=== PATIENT | female | born 1995 | race Caucasian/White ===

== ENCOUNTER 2021-08-21 09:56 | Emergency (ER) | payer MEDICAID, SELFPAY ==
[2021-08-21] VITALS (16 sets, daily range): BP systolic 120–138; BP diastolic 59–79; PULSE 72–96; RESP 11–22; TEMP 37–37.1; O2SAT 95–100
--- NOTE | 2021-08-21 10:00 | RT.EKG_ITS ---
APPROVED REPORT Exam: Resting ECG Reason for Exam: feels like weight on chest Patient Location: E HR:80 bpm ECG Measurements Heart Rate 80 AXIS ND 167 P 34 QRSd 83 QRS 38 QT 377 T 28 QTc 436 Conclusion Sinus rhythm...normal P axis, V-rate 60- 99
[2021-08-21] MEDS: Albuterol/Ipratropium 3 ML UPD VIAL UPD (10:25)
[2021-08-21 10:45] LABS: Abs Immature Grans 0.02 10^3/uL (0.0-0.06); Absolute Basophil Count 0.05 10^3/uL (0.0-0.2); Absolute Eosinophil Count 0.38 10^3/uL (0.0-0.7); Absolute Lymphocyte Count 0.82 10^3/uL (1.2-3.4); Absolute Monocyte Count 0.53 10^3/uL (0.1-0.8); Absolute Neutrophil Count 5.53 10^3/uL (1.2-6.7); Basophils % 0.7; Eosinophils % 5.2; HGB 13.4 g/dL (11.2-15.7); Immature Grans % 0.3; Lymphocytes % 11.2; MCH 30.3 pg (27.0-33.0); MCHC 32.7 % (32.0-36.0); MCV 92.8 fL (80-95); Monocytes % 7.2; Neutrophils % 75.4; Nucleated RBC 0 %; Platelet Count 183 10^3/uL (130-400); RBC 4.42 10^6/uL (3.93-5.22); RDW 12.2 % (11.7-14.6); RDW-SD 42.3 fL; WBC 7.33 10^3/uL (4.4-10.8)
[2021-08-21 10:47] LABS: Bilirubin Negative (Negative); Blood Trace-lysed (Negative); Clarity Clear (Clear); Glucose Negative (Negative); Ketones Negative (Negative); Leukocyte Esterase Negative (Negative); Nitrite Negative (Negative); Specific Gravity 1.015 (1.005-1.025); Urobilinogen 0.2 EU/dL (Up TO 0.2)
[2021-08-21 11:01] LABS: ALT 18 U/L (14-59); AST 12 U/L (15-37); Albumin 3.9 g/dL (3.4-5.0); Alkaline Phosphatase 54 U/L (46-116); Anion Gap 6.7 mmol/L (3-11); BUN 10 mg/dL (7-18); Bilirubin, Total 0.6 mg/dL (0.2-1.0); CO2 29.3 mmol/L (21.0-32.0); CREATININE 0.6 mg/dL (0.55-1.02); Calcium 8.7 mg/dL (8.5-10.1); Chloride 104 mmol/L (98-107); Glucose 100 mg/dL (74-106); Potassium 3.6 mmol/L (3.5-5.1); Sodium 140 mmol/L (136-145); Total Protein 7.3 g/dL (6.4-8.2)
[2021-08-21 11:14] LABS: Troponin I < 50 ng/L (<or=60)
[2021-08-21 11:18] LABS: Bacteria Rare HPF (Negative); C & S Indicated? No; Casts Negative LPF (Negative); Crystals Negative HPF (Negative); Epithelial Cells Rare HPF (Negative); Mucus Negative (Negative); Other Cells Negative (Negative); RBC 0-2 HPF (0-2); WBC Negative HPF (0-5)
[2021-08-21 11:22] LABS: D-Dimer 282 ng/mlFEU (<500)
--- NOTE | 2021-08-21 11:54 | ED.GENADUL_ITS ---
Discharge Plan Disposition Patient Disposition: HOME Condition: Good Discharge Details Clinical Impression: Bronchitis Primary Care Provider: Maulik Cheng ED Provider: Tatyana Palumbo Home Meds and New Rx's Prescriptions: New prednisone 20 mg tablet 40 mg PO DAILY Qty: 6 RF: 0 albuterol sulfate 90 mcg/actuation HFA aerosol inhaler 2 puff inhalation Q6H PRNQty: 6.7 RF: 0 Continued multivitamin Tablet 1 tab PO DAILY RF: 0 citalopram 40 mg tablet 40 mg PO DAILY RF: 0 albuterol sulfate [ProAir HFA] 90 mcg/actuation HFA aerosol inhaler 2 puff INHALATION PRNRF: 0 Discharge Instructions Instructions: Acute Bronchitis (ED), Instructions for Self Monitoring Oxygen Saturation Additional Instructions: increased fluid hydration motrin 600 mg every 8 hours with food tylenol 650 mg every 4-6 hours if you take prednisone, do not take ibuprofen at the same time i would start the prednisone if you continue to be short of breath after using your inhaler every 4-6 hours (2 puffs with spacer), for 24 hours sudafed otc, mucinex otc return with oxygen <90% or with new or worsening complaints your covid test will likely return in 48 hours, isolate until this returns Referrals: Maulik Cheng [Primary Care Provider] - Discharge Data Discharge Date/Time-TO BE ENTERED AT DEPARTURE: 08/21/21 13:14 Medical Decision Making Chest x-ray does not show evidence of acute abnormality per radiology review and my assessment No hypoxia, no respiratory distress Symptomatic improvement although initial anxiety was DuoNeb administration Ambulatory without hypoxia Given pulse oximetry for home with instructions on how to utilize it D-dimer negative, low risk for PE Troponin negative without any family history of cardiac disease Discussed smoking cessation Supplied with albuterol inhaler for home with spacer Prednisone 40 mg daily for 3 days with persistent symptoms No indication for antibiotics Negative test Diagnostic labs reassuring Pending PCR outpatient Covid test, will continue to isolate until this returns Recheck in 24 to 48 hours Return precautions discussed and patient expressed understanding, discharged home stable vitals and symptomatic improvement We will take [id number] medications such as Sudafed for symptom control Medical Records Medical records reviewed: Yes I reviewed the patient's medical records. Lab Data Lab results reviewed: Yes I reviewed the patient's lab results. ECG Data Prior ECG tracings: available for review HPI General Mode of arrival: ambulatory . Date/Time Provider Initiated Documentation: 08/21/21 10:14 . Limitations to Documentation: no limitations . Information obtained by: patient . HPI Narrative: This 26-year-old female pres ents with shortness of breath and chest pressure for the past 4 days. Denies any fever or chills. States she had a close contact did test Covid positive although patient has had a negative rapid and PCR test for Covid. Denies any current calf pain or swelling. Denies any headache. Has myalgias reportedly. States that she did try her albuterol today without relief in symptoms. She has a history of asthma. She does smoke tobacco. States she is non-smoker for the past several days. Denies any chance of . Denies prior history of coagulopathy. Related Data Home Medications Medication Instructions Recorded Confirmed albuterol sulfate 2 puff INHALATION Q6H PRN #6.7 g 08/21/21 albuterol sulfate [ProAir HFA] 2 puff INHALATION PRN 08/21/21 citalopram 40 mg PO DAILY 08/21/21 08/21/21 multivitamin 1 tab PO DAILY 08/21/21 08/21/21 prednisone 40 mg PO DAILY #6 tab 08/21/21 Previous Rx's Medication Instructions Recorded albuterol sulfate 2 puff INHALATION Q6H PRN #6.7 g 08/21/21 prednisone 40 mg PO DAILY #6 tab 08/21/21 Allergies Allergy/AdvReac Type Severity Reaction Status Date / Time Penicillins Allergy Unverified 08/21/21 10:12 sulfamethoxazole Allergy Unverified 08/21/21 10:12 [From Bactrim] trimethoprim [From Bactrim] Allergy Unverified 08/21/21 10:12 General Stated Complaint: SOB PEPE: 3 Review of Systems All systems reviewed & are unremarkable except as noted in HPI and below PFSH All Active Problems (Updated 08/21/21 @ 12:47 by DANIS Bowman) Bronchitis (Acute) Social History Smoking/Tobacco Use Status: Current every day Tobacco Type: cigarettes and e- cigarettes Smoking risk assessment performed?: Yes Drug use: Occasionally Substance use type: marijuana Exam Const General: cooperative and comfortable Orientation: alert and oriented x3 HENMT Mouth: oral mucosae normal Eyes Pupils: PERRL Neck Other: no stridor Resp Effort & Inspection: normal respiratory effort Auscultation: clear to auscultation bilaterally and lung sounds not diminished Cardio Rate: regular rate Rhythm: regular rhythm Skin General skin exam: no rashes or lesions noted Neuro General: patient alert and patient oriented x3 Extrem Other: Distal pulses intact, no peripheral edema Course Vital Signs Vital signs: Vital Signs Temperature 37.1 C 08/21/21 10:06 Pulse 80 08/21/21 10:06 Respiratory Rate 15 08/21/21 10:06 Blood Pressure 137/73 08/21/21 10:06 Pulse Oximetry 97 08/21/21 10:06 Temperature 37.1 C 08/21/21 10:06 Temperature Source Skin 08/21/21 10:06 Pulse 83 08/21/21 11:00 Pulse 96 H 08/21/21 11:01 Respiratory Rate 13 08/21/21 11:01 Respiratory Effort 08/21/21 10:19 Respiratory Pattern Tachypnea 08/21/21 10:19 Blood Pressure 120/59 L 08/21/21 11:00 Blood Pressure Mean 72 08/21/21 11:00 Blood Pressure Position Supine 08/21/21 10:06 Pulse Oximetry 98 08/21/21 11:01 Oxygen Delivery Method Room Air 08/21/21 10:25 Oxygen Flow Rate 0 08/21/21 10:25 Pain Level 7 08/21/21 10:06 Lab/Test Results Lab/Test Results: Laboratory Tests Range/Units 08/21/21 08/21/21 08/21/21 10:13 10:13 10:13 WBC (4.4-10.8) 10^3/uL 7.33 RBC (3.93-5.22) 10^6/uL 4.42 Hgb (11.2-15.7) g/dL 13.4 Hct (36.0-46.0) % 41.0 MCV (80-95) fL 92.8 MCH (27.0-33.0) pg 30.3 MCHC (32.0-36.0) % 32.7 RDW (11.7-14.6) % 12.2 Plt Count (130-400) 10^3/uL 183 MPV (8.0-11.0) fL 10.0 Immature Gran % 0.3 Neutrophils % 75.4 Lymphocytes % 11.2 Monocytes % 7.2 Eosinophils % 5.2 Basophils % 0.7 Nucleated RBC % % 0 Absolute Neutrophils (1.2-6.7) 10^3/uL 5.53 Absolute Lymphocytes (1.2-3.4) 10^3/uL 0.82 L Absolute Monocytes (0.1-0.8) 10^3/uL 0.53 Absolute Eosinophils (0.0-0.7) 10^3/uL 0.38 Absolute Basophils (0.0-0.2) 10^3/uL 0.05 D-Dimer (<500) ng/mlFEU Sodium (136-145) mmol/L 140 Potassium (3.5-5.1) mmol/L 3.6 Chloride (98-107) mmol/L 104 Carbon Dioxide (21.0-32.0) mmol/L 29.3 Anion Gap (3-11) mmol/L 6.7 BUN (7-18) mg/dL 10 Creatinine (0.55-1.02) mg/dL 0.6 Estimated GFR/1.73 m2 (mL/min/1.73m2) >= 60.00 Glucose (74-106) mg/dL 100 Calcium (8.5-10.1) mg/dL 8.7 Total Bilirubin (0.2-1.0) mg/dL 0.6 AST (15-37) U/L 12 L ALT (14-59) U/L 18 Alkaline Phosphatase (46-116) U/L 54 Troponin I (<or=60) ng/L < 50 Total Protein (6.4-8.2) g/dL 7.3 Albumin (3.4-5.0) g/dL 3.9 Urine Color (Yellow) Urine Clarity (Clear) Urine pH (5-8) Ur Specific [place] (1.005-1.025) Urine Protein (Negative) mg/dL Urine Ketones (Negative) mg/dL Urine Blood (Negative) Urine Nitrite (Negative) Urine Bilirubin (Negative) Urine Urobilinogen (Up TO 0.2) EU/dL Ur Leukocyte Esterase (Negative) Urine RBC (0-2) HPF Urine WBC (0-5) HPF Ur Epithelial Cells (Negative) HPF Urine Crystals (Negative) HPF Urine Bacteria (Negative) HPF Urine Casts (Negative) LPF Urine Mucus (Negative) Urine Other (Negative) Ur Culture Indicated? Urine Glucose (Negative) mg/dL Range/Units 08/21/21 08/21/21 10:30 10:43 WBC (4.4-10.8) 10^3/uL RBC (3.93-5.22) 10^6/uL Hgb (11.2-15.7) g/dL Hct (36.0-46.0) % MCV (80-95) fL MCH (27.0-33.0) pg MCHC (32.0-36.0) % RDW (11.7-14.6) % Plt Count (130-400) 10^3/uL MPV (8.0-11.0) fL Immature Gran % Neutrophils % Lymphocytes % Monocytes % Eosinophils % Basophils % Nucleated RBC % % Absolute Neutrophils (1.2-6.7) 10^3/uL Absolute Lymphocytes (1.2-3.4) 10^3/uL Absolute Monocytes (0.1-0.8) 10^3/uL Absolute Eosinophils (0.0-0.7) 10^3/uL Absolute Basophils (0.0-0.2) 10^3/uL D-Dimer (<500) ng/mlFEU 282 Sodium (136-145) mmol/L Potassium (3.5-5.1) mmol/L Chloride (98-107) mmol/L Carbon Dioxide (21.0-32.0) mmol/L Anion Gap (3-11) mmol/L BUN (7-18) mg/dL Creatinine (0.55-1.02) mg/dL Estimated GFR/1.73 m2 (mL/min/1.73m2) Glucose (74-106) mg/dL Calcium (8.5-10.1) mg/dL Total Bilirubin (0.2-1.0) mg/dL AST (15-37) U/L ALT (14-59) U/L Alkaline Phosphatase (46-116) U/L Troponin I (<or=60) ng/L Total Protein (6.4-8.2) g/dL Albumin (3.4-5.0) g/dL Urine Color (Yellow) Yellow Urine Clarity (Clear) Clear Urine pH (5-8) 7.[address] [place] (1.005-1.025) 1.015 Urine Protein (Negative) mg/dL Negative Urine Ketones (Negative) mg/dL Negative Urine Blood (Negative) Trace-lysed H Urine Nitrite (Negative) Negative Urine Bilirubin (Negative) Negative Urine Urobilinogen (Up TO 0.2) EU/dL 0.2 Ur Leukocyte Esterase (Negative) Negative Urine RBC (0-2) HPF 0-2 Urine WBC (0-5) HPF Negative Ur Epithelial Cells (Negative) HPF Rare Urine Crystals (Negative) HPF Negative Urine Bacteria (Negative) HPF Rare Urine Casts (Negative) LPF Negative Urine Mucus (Negative) Negative Urine Other (Negative) Negative Ur Culture Indicated? No Urine Glucose (Negative) mg/dL Negative POC- Test(urine) Negative
--- NOTE | 2021-08-21 12:33 | DI.RAD_ITS ---
Exam(s) XR PORTABLE CHEST AP EXAM: XR PORTABLE CHEST AP CLINICAL HISTORY: shortness of breath. TECHNIQUE: 2D digital imaging was performed. COMPARISON: No exams were available for comparison FINDINGS: Heart size is upper normal. The mediastinum is not widened. Lungs are clear. No infiltrates nor obvious pleural effusions. IMPRESSION: No acute pulmonary findings on this single AP portable view of the chest. DATA REPOSITORY: RADIATION DOSE DELIVERED: All CT scans at this facility use at least one of these dose optimization techniques: automated exposure control; mA and/or kV adjustment per patient size (includes targeted e xams where dose is matched to clinical indication); or iterative reconstruction.
[2021-08-22 14:41] LABS: COVID-19 RT-PCR UVMMC Result Negative (Negative)
== END 2021-08-21 13:14 | disposition home or self-care (01) ==
PROVIDERS: Emergency Provider Physician Assistant; PCP Internal Medicine
DX: J20.9 Acute bronchitis, unspecified (principal); R06.02 Shortness of breath; R07.89 Other chest pain; F17.290 Nicotine dependence, other tobacco product, uncomplicated
CPT/HCPCS: 36415; 80053; 81025; 93005; 94640; 99284; U0003; 71045; 81003; 81015; 84484; 85025; 85379; 93010; J7620

== ENCOUNTER 2021-12-30 16:29 | Emergency (ER) | payer MEDICAID, SELFPAY ==
[2021-12-30 16:43] VITALS: BP 122/63; PULSE 102; RESP 16; TEMP 37.6; O2SAT 96
--- NOTE | 2021-12-30 17:12 | ED.GENADUL_ITS ---
Discharge Plan Disposition Patient Disposition: HOME Condition: Improving Discharge Details Clinical Impression: Influenza A Primary Care Provider: Maulik Cheng ED Provider: Geoff Bautista Home Meds and New Rx's Prescriptions: Continued multivitamin Tablet 1 tab PO DAILY 0RF citalopram 40 mg tablet 40 mg PO DAILY 0RF albuterol sulfate [ProAir HFA] 90 mcg/actuation HFA aerosol inhaler 2 puff INHALATION PRN0RF prednisone 20 mg tablet 40 mg PO DAILY Qty: 6 0RF albuterol sulfate 90 mcg/actuation HFA aerosol inhaler 2 puff inhalation Q6H PRNQty: 6.7 0RF Zyrtec 10 mg Capsule 10 mg PO DAILY 0RF melatonin 10 mg tablet 10 mg PO .QHS 0RF Discharge Instructions Instructions: Influenza (ED) Additional Instructions: Small, frequent to fluids and/or popsicles that she maintain hydration. Bedrest as needed. May use the provided Zofran as needed for nausea. May continue Tylenol 650 to 975 mg every 6 hours, and/or ibuprofen 600 to 800 mg every 8 hours as needed for fever. Medical Decision Making This is a 26-year-old female who reports 3 to 4 days of cough, congestion, malaise, body ache, sinus pain and pressure with postnasal drip and some production of yellow sputum in the mornings. She states she was seen at local urgent care this weekend, found to have a 3 ticks that were removed and she was given a single dose of doxycycline 200 mg. Patient states she had negative home COVID test but previously had a COVID infection. She has not had repeat PCR's at that time. She arrives to the ER with ongoing cough and congestion, oxygenating 100% on room air and with a temperature of 37.6. Differential diagnosis includes viral syndrome, sinusitis, bronchitis or pneumonia. Patient given acetaminophen, viral respiratory panel obtained and patient referred for chest x-ray. CXR: Right lower lobe atelectasis. Influenza A positive, remainder of respiratory panel negative. Patient is somewhat improved with acetaminophen, she continues to take fluids without difficulty. I will offer Zofran for home. She will continue [id number] medications and conservative symptom management. She will return for any acute concerns. HPI General Mode of arrival: ambulatory . Date/Time Provider Initiated Documentation: 12/30/21 16:32 . Limitations to Documentation: no limitations . Information obtained by: patient . History of Present Illness 26 year old F presents to the emergency department with the chief complaint of Cough, congestion, sinus pain and pressure, malaise, fever, described as moderate, Quality is described as dull, and is localized to the head and chest. Patient reports no radiation. Patient started experiencing this day(s) and it has been constant. improves with No relieving factors improve symptom(s), No exacerbating factors reported . Patient notes cough, fever/chills, headaches and other (Tolerating liquids without difficulty.); denies nausea/vomiting, rash, shortness of breath and weakness. Patient did receive the following treatments prior to arrival, other (Was given doxycycline 200 mg for tick exposure on the weekend) Related Data Home Medications Medication Instructions Recorded Confirmed albuterol sulfate 90 mcg/actuation 2 puff INHALATION Q6H PRN #6.7 g 08/21/21 12/30/21 aerosol inhaler albuterol sulfate 90 mcg/actuation 2 puff INHALATION PRN 08/21/21 aerosol inhaler (ProAir HFA) citalopram 40 mg tablet 40 mg PO DAILY 08/21/21 12/30/21 multivitamin 1 tab PO DAILY 08/21/21 12/30/21 prednisone 20 mg tablet 40 mg PO DAILY #6 tab 08/21/21 12/30/21 cetirizine 10 mg capsule (Zyrtec) 10 mg PO DAILY 12/30/21 12/30/21 melatonin 10 mg tablet 10 mg PO .QHS 12/30/21 12/30/21 Previous Rx's Medication Instructions Recorded albuterol sulfate 90 mcg/actuation 2 puff INHALATION Q6H PRN #6.7 g 08/21/21 aerosol inhaler prednisone 20 mg tablet 40 mg PO DAILY #6 tab 08/21/21 Allergies Allergy/AdvReac Type Severity Reaction Status Date / Time Penicillins Allergy Unverified 12/30/21 16:50 sulfamethoxazole Allergy Unverified 12/30/21 16:50 [From Bactrim] trimethoprim [From Bactrim] Allergy Unverified 12/30/21 16:50 General Stated Complaint: RespSymp PEPE: 3 PFSH All Active Problems (Updated 12/30/21 @ 18:36 by Geoff Bautista MD) Influenza A (Acute) Social History Smoking/Tobacco Use Status: Current every day Tobacco Type: cigarettes and e- cigarettes Smoking risk assessment performed?: Yes Drug use: Occasionally Substance use type: marijuana Exam Narrative Exam Narrative: GEN: awake, alert, oriented 3. Pleasant, well groomed, interactive. HEAD: Normocephalic, atraumatic ENT: Mucous membranes moist, oropharynx unremarkable, External ear exam unremarkable EYES: PERRL, EOMI NECK: Full ROM, no ALEC, no menigismus CHEST/RESP: Cough noted, nontender clear to auscultation bilateral, no wheeze/rhonchi/rales CARDIOVASCULAR: Borderline tachycardia at time of exam, no murmur, rub yao. 2+ Rad pulse bilateral ABDOMEN: Soft, nontender, no mass. +Bowel sounds EXT: Full ROM, no edema, no rash Neuro: Grossly normal neurologic exam, conversant, interactive. Psych: Speech fluent, thoughts congruent, affect normal Course Vital Signs Vital signs: Vital Signs Temperature 37.6 C H 12/30/21 16:43 Pulse 102 H 12/30/21 16:43 Respiratory Rate 16 12/30/21 16:43 Blood Pressure 122/63 12/30/21 16:43 Pulse Oximetry 96 12/30/21 16:43 Temperature 37.6 C H 12/30/21 16:43 Temperature Source Oral 12/30/21 16:43 Pulse 102 H 12/30/21 16:43 Respiratory Rate 16 12/30/21 16:43 Respiratory Effort 12/30/21 16:43 Blood Pressure 122/63 12/30/21 16:43 Blood Pressure Position Sitting 12/30/21 16:43 Pulse Oximetry 96 12/30/21 16:43 Oxygen Delivery Method Room Air 12/30/21 16:43 Oxygen Flow Rate 0 12/30/21 16:43 Pain Level 7 12/30/21 16:43
[2021-12-30] MEDS: Acetaminophen 500 MG TAB 1000 MG PO (17:14)
--- NOTE | 2021-12-30 17:15 | DI.RAD_ITS ---
Exam(s) XR PORTABLE CHEST AP EXAM: XR PORTABLE CHEST AP CLINICAL HISTORY: cough, PUI TECHNIQUE: 2D digital imaging was performed. COMPARISON: CR XR PORTABLE CHEST AP from 08/21/2021 FINDINGS: LUNGS: Clear. No pleural abnormality seen. HEART: Normal. AORTA: Normal. BONES: Unremarkable for age. Soft tissues: Unremarkable. IMPRESSION: No acute findings. DATA REPOSITORY: RADIATION DOSE DELIVERED:
--- NOTE | 2021-12-30 18:13 | DI.VRAD_ITS ---
PROCEDURE INFORMATION: Exam: XR Chest Exam date and time: 12/30/2021 5:23 PM Age: 26 years old Clinical indication: Other: Cough, congestion TECHNIQUE: Imaging protocol: XR of the chest. Views: 1 view. Other technique: Portable exam. COMPARISON: CR XR PORTABLE CHEST AP 08/21/2021 12:18 PM FINDINGS: Lungs: There may be some very minimal increased markings at the right lung base medially compared to previous study. Suspect mild atelectasis. Pleural spaces: Unremarkable. No pleural effusion. No pneumothorax. Heart/Mediastinum: Heart size upper limits of normal. Bones/joints: Unremarkable. IMPRESSION: Probable right lower lobe atelectasis. Early consolidation considered less likely. Dictated and Authenticated by: Mari Stanton MD. Ordering:PROSPER Tellez MD
[2021-12-30 18:15] LABS: COVID-19 PCR Negative (Negative); Influenza A PCR Positive (Negative); Influenza B PCR Negative (Negative); RSV PCR Negative (Negative)
[2021-12-30 18:27] LABS: Source Nasopharynx
[2021-12-30] MEDS: Ondansetron O.D.T. 4 MG TABEF, 3 TABS/BTL PO (18:51)
== END 2021-12-30 18:50 | disposition home or self-care (01) ==
PROVIDERS: Emergency Provider Emergency Medicine; PCP Internal Medicine
DX: J10.1 Influenza due to other identified influenza virus with other respiratory manifestations (principal); R05.1 Acute cough; Z20.822 Contact with and (suspected) exposure to COVID-19
CPT/HCPCS: 87637; 99283; 71045

== ENCOUNTER 2024-02-17 11:25 | Emergency (ER) | payer MEDICAID, SELFPAY ==
--- NOTE | 2024-02-17 11:15 | RT.EKG_ITS ---
APPROVED REPORT Exam: Resting ECG Reason for Exam: chest pain Patient Location: E HR:85 bpm ECG Measurements Heart Rate 85 AXIS CO 164 P 48 QRSd 79 QRS 41 QT 361 T 51 QTc 430 Conclusion Sinus rhythm...normal P axis, V-rate 60- 99 Ventricular premature complex...V complex w/ short R-R interval
[2024-02-17 11:28] VITALS: BP 150/84; PULSE 90; RESP 20; TEMP 36.8; O2SAT 98
--- NOTE | 2024-02-17 13:08 | ED.GENADUL_ITS ---
Discharge Plan Disposition Patient Disposition: Home Condition: Stable Discharge Details Clinical Impression: Gastritis Primary Care Provider: Maulik Cheng ED Provider: Dean Medina Home Meds and New Rx's Prescriptions: New omeprazole 20 mg capsule,delayed release(DR/EC) 20 mg PO BID 30 Days Qty: 60 0RF Continued multivitamin Tablet 1 tab PO DAILY citalopram 40 mg tablet 40 mg PO DAILY albuterol sulfate [ProAir HFA] 90 mcg/actuation HFA aerosol inhaler 2 puff INHALATION PRN prednisone 20 mg tablet 40 mg PO DAILY Qty: 6 0RF albuterol sulfate 90 mcg/actuation HFA aerosol inhaler 2 puff inhalation Q6H PRNQty: 6.7 0RF Zyrtec 10 mg Capsule 10 mg PO DAILY melatonin 10 mg tablet 10 mg PO .QHS Revitaflor 10 billion cell capsule 100 mmu cells PO DAILY magnesium 200 mg tablet 200 mg PO DAILY loratadine [Claritin] 10 mg tablet 10 mg PO DAILY Liletta 20.4 mcg/24 hr (8 yrs) 52 mg intrauterine device 1 device intrauterine ONCE Rx Instructions: as a single dose Held citalopram [Celexa] 40 mg tablet 40 mg PO DAILY Hold Instructions: Resume on 03/16/24. The maximum dose of citalopram while taking OMEPRAZOLE (your new medication) is 20mg DAILY- please talk with your PCP about this before starting the new medication Discontinued famotidine [Acid Controller] 20 mg tablet 20 mg PO DAILY Discharge Instructions Instructions: Gastritis, Omeprazole Additional Instructions: You were seen in the emergency department for your continued gastritis not responding to Pepcid. Please discontinue Pepcid and start the new medication omeprazole-please note that you take citalopram and the maximum amount of citalopram recommended with concurrent omeprazole uses 20 mg daily, please talk to your primary care provider about reducing your dose of citalopram by half while taking omeprazole. You likely have a defect in the lining of your stomach or duodenum causing pain when eating or esophagitis. This needs to be evaluated by upper endoscopy, I have placed a referral for you to be seen by general surgery practice for upper endoscopy. Your cardiac enzymes are normal and your EKG is benign and your chest x-ray shows no acute pathology. I do not suspect cardiac etiology of your burning chest and throat pain. Please return to the emergency department for any increasing chest pain despite treatment, shortness of breath, diaphoresis, shortness of breath with exertion, near fainting or dizziness, intractable nausea or vomiting. Referrals: [facility] [Provider Group] Maulik Cheng [Primary Care Provider] - [facility] General Date/Time Provider Initiated Documentation: 02/17/24 11:40 . HPI Narrative: 29 year-old female presents to ED today by POV/ambulating with a chief complaint of heartburn for the past 2 weeks- has been trying famotidine without relief. Quality described as throat and chest burning pain- especially after eating, no radiation to shortness of breath, diaphoresis, near syncope, dizziness, tachycardia, palpitations- denies intractable nausea/vomiting, denies coffee- ground emesis or hematemesis. Severity is described as moderate to severe. Palliating factors include famotidine without relief. Provoking factors include nothing specific. Events leading up to the incident/Associated Symptoms: Patient has not received EGD. Patient not anticoagulated. Related Data Home Medications Medication Instructions Recorded Confirmed albuterol sulfate 90 mcg/actuation 2 puff inhalation Q6H PRN #6.7 08/21/21 12/30/21 aerosol inhaler grams albuterol sulfate 90 mcg/actuation 2 puff inhalation PRN 08/21/21 aerosol inhaler (ProAir HFA) citalopram 40 mg tablet 40 mg PO DAILY 08/21/21 12/30/21 multivitamin 1 tab PO DAILY 08/21/21 02/17/24 prednisone 20 mg tablet 40 mg (2 x 20 mg) PO DAILY #6 tabs 08/21/21 12/30/21 cetirizine 10 mg capsule (Zyrtec) 10 mg PO DAILY 12/30/21 12/30/21 melatonin 10 mg tablet 10 mg PO .QHS 12/30/21 12/30/21 Lactobacillus acidophilus 10 100 mmu cells PO DAILY 02/17/24 02/17/24 billion cell capsule (Revitaflor) citalopram 40 mg tablet (Celexa) 40 mg PO DAILY 02/17/24 02/17/24 levonorgestrel 20.4 mcg/24 hr (up 1 device intrauterine ONCE 02/17/24 02/17/24 to 8 yrs) 52 mg intrauterine device (Liletta) loratadine 10 mg tablet (Claritin) 10 mg PO DAILY 02/17/24 02/17/24 magnesium 200 mg tablet 200 mg PO DAILY 02/17/24 02/17/24 omeprazole 20 mg capsule,delayed 20 mg PO BID gastritis 30 days #60 02/17/24 release caps Previous Rx's Medication Instructions Recorded albuterol sulfate 90 mcg/actuation 2 puff inhalation Q6H PRN #6.7 08/21/21 aerosol inhaler grams prednisone 20 mg tablet 40 mg (2 x 20 mg) PO DAILY #6 tabs 08/21/21 omeprazole 20 mg capsule,delayed 20 mg PO BID gastritis 30 days #60 02/17/24 release caps Allergies Allergy/AdvReac Type Severity Reaction Status Date / Time Penicillins Allergy Severe Anaphylaxis Unverified 02/17/24 11:35 sulfamethoxazole Allergy Unknown Other (See Unverified 02/17/24 11:35 [From Bactrim] Comment) trimethoprim [From Bactrim] Allergy Unknown Other (See Unverified 02/17/24 11:35 Comment) General Stated Complaint: Chest Pain PEPE: 3 Review of Systems All systems reviewed & are unremarkable except as noted in HPI and below Exam Narrative Exam Narrative: GENERAL APPEARANCE: Well-nourished, non-toxic, awake and alert, atraumatic, no acute distress. SKIN: Warm, pink, dry, intact, without rashes/lesions/ulcerations. HEAD: Normocephalic, atraumatic, normal hair distribution for gender/age. EYES: Pupils PERRLA, EOMs intact without nystagmus, normal conjunctiva, no exudates on lids/lashes. ENT: Nares patent, no circumoral cyanosis, no facial swelling NECK: Supple, trachea midline, painless cervical ROM. LUNGS/CHEST: Lungs CTA bilaterally- no rhonchi/rales/wheezes diffusely, non- labored respirations, normal A/P diameter, symmetrical expansion, no chest wall deformity HEART (CV/PV): Regular rate and rhythm without murmur, no peripheral edema, no JVD. ABDOMEN: Soft, non-distended, no guarding, no tenderness. MSK: Normal ROM, no swelling/deformity to bilateral UEs or LEs, moving all extremities without weakness, no cyanosis, spine midline without tenderness, normal curvature. NEURO: Mental Status AAOx4 - alert to person, place, time, events No facial droop, no forehead involvement. Motor: No focal weakness - strength 5/5 in bilateral UEs and LEs, proximal and distal, symmetric. Sensory: sensation intact to light touch globally. Gait normal: patient ambulated without ataxia into ED room. PSYCH: euthymic, cooperative, pleasant, appropriate speech Course Vital Signs Vital signs: Vital Signs Temperature 36.8 C 02/17/24 11:28 Pulse 90 02/17/24 11:28 Respiratory Rate 20 02/17/24 11:28 Blood Pressure 150/84 H 02/17/24 11:28 Pulse Oximetry 98 02/17/24 11:28 Temperature 36.8 C 02/17/24 11:28 Temperature Source Skin 02/17/24 11:28 Pulse 90 02/17/24 11:28 Respiratory Rate 20 02/17/24 11:28 Blood Pressure 150/84 H 02/17/24 11:28 Blood Pressure Position Sitting 02/17/24 11:28 Pulse Oximetry 98 02/17/24 11:28 Oxygen Delivery Method Room Air 02/17/24 11:28 Oxygen Flow Rate 0 02/17/24 11:28 Pain Level 7 02/17/24 11:28 Medical Decision Making This dictation utilizes [id number] dictation software and may contain unedited grammatical errors. 29 year-old female presents to ED today by POV/ambulating with a chief complaint of heartburn for the past 2 weeks- has been trying famotidine without relief. Quality described as throat and chest burning pain- especially after eating, no radiation to shortness of breath, diaphoresis, near syncope, dizziness, tachycardia, palpitations- denies intractable nausea/vomiting, denies coffee- ground emesis or hematemesis. Severity is described as moderate to severe. Palliating factors include famotidine without relief. Provoking factors include nothing specific. Events leading up to the incident/Associated Symptoms: Patient has not received EGD. Patients' medical history: Gastritis, allergies, asthma. Family and social history: noncontributory. Pertinent exam findings / vital signs include benign cardiopulmonary status, nontoxic vitals, benign abdomen. Differential / pathologies of concern include gastritis, PUD, not esophageal perf/boerhaave syndrome, ACS. Diagnostic studies of: -CBC, CMP, Lipase, Trop I, EKG, CXR. -CBC without leukocytosis -CMP benign -Lipase WNL -Trop I negative with reliabel onset -EKG shows no signs of ischemia, no ST changes, normal axis/intervals -CXR without any pathology Interventions of: -d/c famotidine, trial omeprazole - refer Gen Surg for outpatient EGD ED Course/Assessment/Plan: 29-year-old female has been treating herself for gastritis with [id number] famotidine for few weeks, having continuing and somewhat worsening burning pain with p.o. intake, chest pain, throat pain. We ruled out cardiac pathology with reliable onset, chest x-ray shows no acute abnormalities and EKG is without concerns. I prescribed omeprazole for the patient, advise discontinue famotidine and referred to general surgery, strict return criteria for worsening chest pain especially with exertion, shortness of breath, diaphoresis, near syncope or dizziness, intractable nausea or vomiting, chest or abdominal pain with fever. Findings not consistent with esophageal perforation, ACS, biliary obstruction, intractable vomiting. Disposition of Gastritis. Patient verbalized understanding of the plan and return to ED criteria and engaged in shared decision making. Medical Records Medical records reviewed: Yes I reviewed the patient's medical records. Imaging Data Radiologic Study: Attestation: I personally reviewed and interpreted this imaging study as follows: Imaging: X-Ray Radiologist's impression: EXAM: XR CHEST 2V PA LATERAL CLINICAL HISTORY: chest pain TECHNIQUE: 2D digital imaging was performed of the chest. Two images were obtained. PA and lateral views were obtained. COMPARISON: CR,XR XR PORTABLE CHEST AP from 12/30/2021 FINDINGS: MEDIASTINUM: Normal. HEART: Normal. PULMONARY VASCULATURE: Normal. LUNGS: Clear. PLEURAL SPACE: No pleural effusion or pneumothorax. BONE:Within normal limits for the patient's age. OTHER FINDINGS:Normal. IMPRESSION: No acute pulmonary findings. Lab Data Lab results reviewed: Yes I reviewed the patient's lab results. Labs: Laboratory Tests Range/Units 02/17/24 13:35 WBC (4.4-10.8) 10^3/uL 8.02 RBC (3.93-5.22) 10^6/uL 4.86 Hgb (11.2-15.7) g/dL 14.9 Hct (36.0-46.0) % 44.5 MCV (80-95) fL 92 MCH (27.0-33.0) pg 30.7 MCHC (32.0-36.0) % 33.5 RDW (11.7-14.6) % 12.5 Plt Count (130-400) 10^3/uL 232 MPV (8.0-11.0) fL 9.6 Immature Gran % % 0.2 Neutrophils % % 65.0 Lymphocytes % % 21.4 Monocytes % % 7.0 Eosinophils % % 5.4 Basophils % % 1.0 Nucleated RBC % (0.0-0.3) % 0.0 Absolute Neutrophils (1.2-6.7) 10^3/uL 5.21 Absolute Lymphocytes (1.2-3.4) 10^3/uL 1.72 Absolute Monocytes (0.1-0.8) 10^3/uL 0.56 Absolute Eosinophils (0.0-0.7) 10^3/uL 0.43 Absolute Basophils (0.0-0.2) 10^3/uL 0.08 Sodium (136-145) mmol/L 140 Potassium (3.5-5.1) mmol/L 4.0 Chloride (98-107) mmol/L 102 Carbon Dioxide (21.0-32.0) mmol/L 30.1 Anion Gap (3-11) mmol/L 7.9 BUN (7-18) mg/dL 10 Creatinine (0.55-1.02) mg/dL 0.6 Est GFR (CKD-EPI 2020) (mL/min/1.73m2) 123.76 Glucose (74-106) mg/dL 109 H Calcium (8.5-10.1) mg/dL 8.9 Total Bilirubin (0.2-1.0) mg/dL 0.59 AST (15-37) U/L 15 ALT (14-59) U/L 29 Alkaline Phosphatase (46-116) U/L 63 Troponin I (< or =60) ng/L < 50 Total Protein (6.4-8.2) g/dL 7.5 Albumin (3.4-5.0) g/dL 3.9 Lipase (16-77) U/L 27 Quality:SDOH Health Related Social Needs: No Data to Display PFSH All Active Problems (Updated 02/17/24 @ 14:34 by DANIS Ellis) Gastritis (Acute) Social History Smoking/Tobacco Use Status: Current every day Tobacco Type: e-cigarettes Smoking risk assessment performed?: Yes Alcohol Intake: current Alcohol Intake frequency: a few times a month Drug use: Occasionally Substance use type: marijuana
[2024-02-17 13:38] VITALS: RESP 18
[2024-02-17 13:41] VITALS: BP 137/85; PULSE 79; RESP 16; TEMP 36.1; O2SAT 93
[2024-02-17 13:50] LABS: Abs Immature Grans 0.02 10^3/uL (0.0-0.06); Absolute Basophil Count 0.08 10^3/uL (0.0-0.2); Absolute Eosinophil Count 0.43 10^3/uL (0.0-0.7); Absolute Lymphocyte Count 1.72 10^3/uL (1.2-3.4); Absolute Monocyte Count 0.56 10^3/uL (0.1-0.8); Absolute Neutrophil Count 5.21 10^3/uL (1.2-6.7); Eosinophils % 5.4 %; HCT 44.5 % (36.0-46.0); HGB 14.9 g/dL (11.2-15.7); Immature Grans % 0.2 %; Lymphocytes % 21.4 %; MCH 30.7 pg (27.0-33.0); MCHC 33.5 % (32.0-36.0); MCV 92 fL (80-95); MPV 9.6 fL (8.0-11.0); Platelet Count 232 10^3/uL (130-400); RBC 4.86 10^6/uL (3.93-5.22); RDW 12.5 % (11.7-14.6); RDW-SD 42.5 fL; WBC 8.02 10^3/uL (4.4-10.8)
--- NOTE | 2024-02-17 13:54 | DI.RAD_ITS ---
Exam(s) XR CHEST 2V PA LATERAL EXAM: XR CHEST 2V PA LATERAL CLINICAL HISTORY: chest pain TECHNIQUE: 2D digital imaging was performed of the chest. Two images were obtained. PA and lateral views were obtained. COMPARISON: CR,XR XR PORTABLE CHEST AP from 12/30/2021 FINDINGS: MEDIASTINUM: Normal. HEART: Normal. PULMONARY VASCULATURE: Normal. LUNGS: Clear. PLEURAL SPACE: No pleural effusion or pneumothorax. BONE:Within normal limits for the patient's age. OTHER FINDINGS:Normal. IMPRESSION: No acute pulmonary findings. DATA REPOSITORY: RADIATION DOSE DELIVERED:
[2024-02-17 14:01] LABS: ALT 29 U/L (14-59); AST 15 U/L (15-37); Albumin 3.9 g/dL (3.4-5.0); Alkaline Phosphatase 63 U/L (46-116); Anion Gap 7.9 mmol/L (3-11); BUN 10 mg/dL (7-18); Bilirubin, Total 0.59 mg/dL (0.2-1.0); CO2 30.1 mmol/L (21.0-32.0); CREATININE 0.6 mg/dL (0.55-1.02); Calcium 8.9 mg/dL (8.5-10.1); Chloride 102 mmol/L (98-107); Estimated GFR 123.76 (mL/min/1.73m2); Glucose 109 mg/dL (74-106); Lipase 27 U/L (16-77); Sodium 140 mmol/L (136-145); Total Protein 7.5 g/dL (6.4-8.2); Troponin I < 50 ng/L (< or =60)
[2024-02-17 14:52] VITALS: BP 152/99; PULSE 62; RESP 18; TEMP 36.3; O2SAT 96
--- NOTE | 2024-02-17 15:04 | NUR.NOTE ---
Referral faxed to [facility] for upper endoscopy; non urgent. Nursing Note:
--- NOTE | 2024-02-18 17:31 | NUR.NOTE ---
Nursing Note: PT chart accessed to resolve prescription discrepency from ER visit on 02/17/24
== END 2024-02-17 15:00 | disposition home or self-care (01) ==
PROVIDERS: Emergency Provider Physician Assistant; PCP Internal Medicine
DX: K29.70 Gastritis, unspecified, without bleeding (principal)
CPT/HCPCS: 36415; 80053; 83690; 93005; 99283; 71046; 84484; 85025; 93010